=== PATIENT | male | born 1980 | race Caucasian/White ===

== ENCOUNTER → 2025-02-08 | Outpatient (CLI) | payer SELFPAY ==
--- NOTE | 2025-02-08 06:27 | CT_ITS ---
PROCEDURE: EXTREMITY LOWER WITH CONTRAST 02/08/2025 REASON FOR EXAM: MASS LEFT UPPER THIGH TECHNIQUE: Procedure Code: CTELW Modality: CT Procedure: CT of the left thigh with intravenous contrast. Coronal and Sagittal reconstruction series were provided. CONTRAST: Intravenous administration of 94 mL Isovue 370. One or more dose reduction techniques were used (e.g., Automated exposure control, adjustment of the mA and/or kV according to patient size, use of iterative reconstruction technique). RADIATION DOSE SUMMARY: CTDlvol: 20.34 mGy DLP: 1363.70 mGycm COMPARISON: None provided. FINDINGS: Mild inhomogeneous enhancement of a deep ovoid structure of the distal left thigh is seen, abutting, but not apparently involving the femur itself. This structure appears to arise within deep lipomatous tissue, with mass effect on the supra adjacent musculature. It is measured at approximately 43 x 79 x 76 mm. 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 No knee joint effusion is seen. No abnormal osseous signal is seen. The hip joint is unremarkable in appearance. No free or loculated fluid collection is noted. No adenopathy is seen in visualized areas. Mild sigmoid diverticulosis is seen upon very limited evaluation of the sigmoid colon. CT/Extremity Lower WITH Contrast IMPRESSION: Mild inhomogeneous enhancement of a deep ovoid structure of the distal left thi gh is seen, abutting, but not apparently involving the femur itself. This structure appears to arise within deep lipomatous tissue , with mass effect on the supra adjacent musculature. It is measured at approximately 43 x 79 x 76 mm. This is concerni ng for a possible lipomatous neoplasm, malignant or benign, as well as neurogenic and other possible neoplastic processes. At this time, consider consultation with subspecialty oncologic orthopedic surg jerardo. Reading Location: [id number]
== END | disposition home or self-care (01) ==
LOC: CT 06:24
PROVIDERS: Referring Provider Physician Assistant; Visit Provider Physician Assistant
DX: R22.2 Localized swelling, mass and lump, trunk (principal)
CPT/HCPCS: 73701; Q9967